=== PATIENT | male | born 1970 | race Caucasian/White ===

== ENCOUNTER 2016-10-09 13:01 | Emergency (ER) | payer OTHER ==
[~2016-10-09] VITALS: Ht 175.3 cm; Wt 101.2 kg
[2016-10-09 13:01] VITALS: BP_SYST 101
[2016-10-09] MEDS ORDERED: ONDANSETRON HCL 4 MG/2 ML VIAL IVP ONE (13:15)
[2016-10-09] MEDS ORDERED: HYDROmorphone 1 MG INJ. 1 MG/ML AMPUL IVP ONE (13:15)
[2016-10-09] MEDS ORDERED: KETOROLAC TROMETHAMINE 30 MG VIAL IVP ONE (13:45)
[2016-10-09 14:10] VITALS: BP_SYST 110
== END 2016-10-09 14:10 | disposition home or self-care (01) ==
LOC: SED 13:01
DX: S33.5XXA Sprain of ligaments of lumbar spine, initial encounter (principal); X58.XXXA Exposure to other specified factors, initial encounter; Y93.89 Activity, other specified; Y92.89 Other specified places as the place of occurrence of the external cause; Y99.8 Other external cause status
CPT/HCPCS: 72100; 96374; 96375; 99284; J1170; J1885; J2405

== ENCOUNTER 2019-03-09 06:58 | Inpatient (IN) | payer OTHER ==
[~2019-03-09] VITALS: Ht 175.3 cm; Wt 104.3 kg
[2019-03-09 07:09] VITALS: BP_SYST 150
--- NOTE | 2019-03-09 07:09 | NUR ---
Patient to ER bed 5 to gown for evaluation. Side rails up. Report given to MARV Daigle.
--- NOTE | 2019-03-09 07:25 | NUR ---
PATIENT PRESENTS TO THE ER WITH HX OF SEVERE EPIGASTRIC PAIN FOR 12 HOURS WITH NAUSEA AND VOMITING; NO TRAUMA, NO OTHER REMARKABLE S/S
--- NOTE | 2019-03-09 07:26 | NUR ---
PATIENT TO ER #5 AT 0778
--- NOTE | 2019-03-09 07:27 | NUR ---
ERMD EVALUATION AT 0720
[2019-03-09] MEDS ORDERED: NACL 0.9% 1,000 ML IV ONE (07:28)
[2019-03-09] MEDS ORDERED: ONDANSETRON HCL 4 MG/2 ML VIAL IVP ONE (07:30)
[2019-03-09 08:00] LABS: BASOPHILS % (AUTO) 0.1 % (0.0-2.0); EOSINOPHILS % (AUTO) 0.1 % (0.0-4.0); HEMATOCRIT 47.8 % (36-54); HEMOGLOBIN 16.1 g/dL (14.0-18.0); LYMPHOCYTES # (AUTO) 0.9 K/uL (1.0-5.5); LYMPHOCYTES % (AUTO) 6.6 % (20.5-51.5); MEAN CORPUSCULAR HEMOGLOBIN 30 pg (27-31); MEAN CORPUSCULAR HGB CONC 34 % (32-36); MEAN CORPUSCULAR VOLUME 90 fL (79.0-98.0); MONOCYTES # (AUTO) 1.2 K/uL (0.0-1.0); MONOCYTES % (AUTO) 8.2 % (1.7-9.3); NEUTROPHILS # (AUTO) 12.2 K/uL (1.8-7.7); PLATELET COUNT (AUTO) 297 K/uL (130-430); RED BLOOD CELL COUNT(AUTO) 5.32 MIL/uL (4.2-6.2); RED CELL DISTRIBUTION WIDTH 13.5 % (9.0-15.0); WHITE BLOOD COUNT (AUTO) 14.3 K/uL (4.8-10.8)
--- NOTE | 2019-03-09 08:00 | NUR ---
PATIENT IS ON BEAD INSPECTOR AND SAO2
--- NOTE | 2019-03-09 08:04 | NUR ---
IV PLACED #22 LEFT HAND WITHOUT INCIDENT
[2019-03-09 08:12] LABS: CALCIUM 9.3 mg/dL (8.4-11.0); CREATININE 0.97 mg/dL (0.55-1.30); POTASSIUM 4.1 mmol/L (3.5-5.1)
[2019-03-09] MEDS ORDERED: MORPHINE 4 MG/ML INJ. SYRINGE IVP ONE (08:15)
[2019-03-09 08:17] LABS: TOTAL BILIRUBIN 4.4 mg/dL (0.0-1.0)
[2019-03-09 08:22] LABS: BILIRUBIN,URINE 2+ (NEGATIVE); CLARITY/URINE CLEAR (CLEAR); COLOR,URINE YELLOW (YELLOW); GLUCOSE,URINE NEGATIVE (NEGATIVE); KETONES,URINE NEGATIVE (NEGATIVE); LEUKOCYTE ESTERASE ,URINE NEGATIVE (NEGATIVE); NITRITE, URINE NEGATIVE (NEGATIVE); PH,URINE 8.5 (5.0-8.0); PROTEIN URINE NEGATIVE (NEGATIVE)
--- NOTE | 2019-03-09 08:27 | NUR ---
REASSESSMENT; PATIENT STATES MARKED IMPROVEMENT IN SYMPTOMS, NAUSEA RESOLVED; DISPOSITION PENDING
[2019-03-09 08:35] LABS: BLOOD, URINE TRACE (NEGATIVE)
[2019-03-09 09:04] LABS: BACTERIA,URINE FEW /HPF (None Seen); WBC,URINE 0-3 /HPF (0-3)
--- NOTE | 2019-03-09 09:17 | NUR ---
REASSESSMENT; PATIENT STATES SYMPTOMS RESOLVED; DISPOSITION PENDING
--- NOTE | 2019-03-09 10:11 | NUR ---
REASSESSMENT; PATIENT REMAINS UNCHANGED AND ASYMPTOMATIC; SEDATE; DISPOSITION PENDING
--- NOTE | 2019-03-09 11:40 | NUR ---
REASSESSMENT BY ERMD; PREPARATIONS TO ADMIT; PATIENT REMAINS ASYMPTOMATIC AND WILL BE ADMITTED TO [facility] PER DR ALLEN FOR ACUTE CHOLECYSTITIS; REPORT CALLED TO NURSE AND PATIENT TRANSPORTED BCLS; IMPROVED
[2019-03-09] MEDS ORDERED: D5NS 1,000 ML IV ONE (11:45)
--- NOTE | 2019-03-09 11:51 | NUR ---
ADMISSION NOTE Received patient from ER via kumar, received report from MOMO FAIR. Patient admitted with diagnosis of ACUTE CHOLECYSTITIS. Patient oriented to hospital routine, call light, toileting and safety-patient verbalized understanding.
--- NOTE | 2019-03-09 11:52 | NUR ---
CONSULTATION PAGED REASON FOR CONSULTATION:ACUTE JOSÉ MIGUEL WAS CONSULT CALLED?Y PERSON WHO WAS NOTIFIED:DARBY CONSULTING PHYSICIAN:RUFUS HARDY FLATBED OWNER OPERATOR SPECIALTY:CARY FLATBED OWNER OPERATOR PHONE NUMBER:[phone] REQUESTING PHYSICIAN:THADDEUS MACE
[2019-03-09 12:06] VITALS: BP_SYST 120
--- NOTE | 2019-03-09 13:00 | NUR ---
MRI: To MRI on a wheelchair for MRCP.
[2019-03-09] MEDS ORDERED: METOCLOPRAMIDE HCL 10 MG/2 ML VIAL IVP PRN (15:15)
[2019-03-09] MEDS ORDERED: LEVOFLOXACIN 500 MG/D5W 100 ML IV SCH (15:15)
[2019-03-09] MEDS ORDERED: MORPHINE 4 MG/ML INJ. SYRINGE IVP PRN (15:15)
[2019-03-09] MEDS ORDERED: metroNIDAZOLE 500 mg/NS 100 ML IV SCH (15:15)
[2019-03-09 15:28] VITALS: BP_SYST 99
[2019-03-09] MEDS: ACETAMINOPHEN 325 MG TABLET PO PRN (15:28)
--- NOTE | 2019-03-09 16:00 | NUR ---
Sepsis Protocol: Patient's temperature at 1528 was 101.6, HR =107, MD sinha notified, sepsis protocol initiated .
[2019-03-09] MEDS: LEVOFLOXACIN 500 MG/D5W 100 ML IV SCH (16:01)
[2019-03-09] MEDS: metroNIDAZOLE 500 mg/NS 100 ML IV SCH (17:13)
--- NOTE | 2019-03-09 18:17 | NUR ---
End of shift: Needs attended. Made patient aware of plan of care.
[2019-03-09 19:13] LABS: BILIRUBIN,DIRECT 2.3 mg/dL (0.0-0.3)
--- NOTE | 2019-03-09 19:35 | NUR ---
OPENING NOTES Pt and endorsement received from day shift nurse. Pt is AAOx4, sitting on a chair. Family at bedside. Pt on IVF with D5NS at 100ml/hr and infusing well on left hand G22. No complains of pain at this time. No signs of acute distress or SOB noted. Encouraged to use call light when needed. Will continue to monitor.
[2019-03-09 20:13] VITALS: BP_SYST 117
[2019-03-09] MEDS: ONDANSETRON HCL 4 MG/2 ML VIAL IVP PRN (20:17)
--- NOTE | 2019-03-09 20:25 | NUR ---
PT SPOKE TO DR. MOORE Per pt, Dr. Moore said to him that he will not undergo surgery and can have full liquid. Will wait for MD to put new orders.
--- NOTE | 2019-03-09 23:28 | NUR ---
ROUNDS Pt is resting in bed with both eyes closed, with visible chest rise and fall with non-labored breathing noted. No complains of pain and no signs of acute distress noted. Safety precautions in place and call light with pt. Will continue to monitor.
[2019-03-10 00:01] VITALS: BP_SYST 107
[2019-03-10] MEDS: metroNIDAZOLE 500 mg/NS 100 ML IV SCH ×3 (00:01→16:37)
--- NOTE | 2019-03-10 03:17 | NUR ---
ROUNDS Pt is resting in bed with both eyes closed, with visible chest rise and fall with non-labored breathing noted. Pt is easily arousable. No signs of acute distress noted. No needs at this time. Safety precautions in place and call light with pt. Will continue to monitor.
[2019-03-10] MEDS: ACETAMINOPHEN 325 MG TABLET PO PRN (05:02)
--- NOTE | 2019-03-10 06:56 | NUR ---
CLOSING NOTES Pt is resting in bed with both eyes closed, with visible chest rise and fall with non-labored breathing noted. No complains of pain at this time. No signs of acute distress or SOB noted. All needs attended throughout the shift. Safety precautions maintained with 2 side rails up, wheels locked, and bed in lowest level. Call light with pt. Will endorse to day shift nurse.
[2019-03-10 07:06] LABS: BASOPHILS % (AUTO) 0.2 % (0.0-2.0); EOSINOPHILS % (AUTO) 0.4 % (0.0-4.0); HEMATOCRIT 43.6 % (36-54); HEMOGLOBIN 14.7 g/dL (14.0-18.0); LYMPHOCYTES # (AUTO) 1.2 K/uL (1.0-5.5); LYMPHOCYTES % (AUTO) 10.6 % (20.5-51.5); MEAN CORPUSCULAR HEMOGLOBIN 30 pg (27-31); MEAN CORPUSCULAR HGB CONC 34 % (32-36); MEAN CORPUSCULAR VOLUME 90 fL (79.0-98.0); MONOCYTES # (AUTO) 1.5 K/uL (0.0-1.0); MONOCYTES % (AUTO) 13.7 % (1.7-9.3); NEUTROPHILS # (AUTO) 8.3 K/uL (1.8-7.7); NEUTROPHILS % (AUTO) 75.1 % (40.0-70.0); PLATELET COUNT (AUTO) 245 K/uL (130-430); RED BLOOD CELL COUNT(AUTO) 4.85 MIL/uL (4.2-6.2); RED CELL DISTRIBUTION WIDTH 13.7 % (9.0-15.0); WHITE BLOOD COUNT (AUTO) 11.1 K/uL (4.8-10.8)
[2019-03-10 07:49] LABS: ALBUMIN 3.2 g/dL (3.4-4.8); CALCIUM 8.6 mg/dL (8.4-11.0); CREATININE 0.87 mg/dL (0.55-1.30); POTASSIUM 3.6 mmol/L (3.5-5.1)
[2019-03-10 07:55] LABS: TOTAL BILIRUBIN 7.2 mg/dL (0.0-1.0)
[2019-03-10 08:00] VITALS: BP_SYST 118
--- NOTE | 2019-03-10 08:00 | NUR ---
Note Pt sitting up in bed eating his breakfast. No SOB/resp distress or pain/discomfort noted at this time. IV in left hand intact and patent at this time. No needs noted at this time. Call light within reach.
--- NOTE | 2019-03-10 08:45 | NUR ---
Note Dr Zoila Lowery on the floor and assessed pt at bedside at this time. Answered questions/concerns. Pt's Bilirubin labs have come up since yesterday, Dr Lowery requested that Tylenol PO be dc'd at this time. Pt was made aware.
[2019-03-10 09:12] LABS: BILIRUBIN,DIRECT 5.1 mg/dL (0.0-0.3)
[2019-03-10] MEDS ORDERED: PANTOPRAZOLE SODIUM 40 MG/VIAL (PROTONIX) IVP ONE (09:30)
--- NOTE | 2019-03-10 10:44 | NUR ---
CONSULTATION PAGED/CALLED Reason for Consultation: elevated LFT Person Who was Notified: Dr. VELASCO Consulting Physician: Dr. Velasco Medical Oncology Physician Specialty: Gastroenterologiost Ordering Physician:
--- NOTE | 2019-03-10 11:00 | NUR ---
Note Pt ambulating in hallway with IV pole and then IV was wrapped in plastic and pt went to shower at this time. No needs noted at this time. Call light within reach.
[2019-03-10 11:13] VITALS: BP_SYST 106
[2019-03-10] MEDS ORDERED: DIATR MEGLU/DIATRIZ SOD 30 ML SOLUTION PO ONE (12:33)
[2019-03-10] MEDS: ONDANSETRON HCL 4 MG/2 ML VIAL IVP PRN ×2 (13:00→20:49)
--- NOTE | 2019-03-10 13:00 | NUR ---
IV RE-INSERTION: Complaining of pain to IV site. Restarted on right fore arm. Successful after 2 attempts g22 Resumed current IVF of and regulated @ per hour. Will observe for any signs of infiltration.
--- NOTE | 2019-03-10 13:00 | NUR ---
Note Pt's left hand IV fell out. New IV 22g' was inserted in right forearm by zinc furnace charger Sylvia at this time.
--- NOTE | 2019-03-10 13:07 | NUR ---
MD PALOMA RUBIO CALLED AT SPOKE WITH DR.REDDY LIZ MALLU CHEMIST INSTRUMENTATION.
--- NOTE | 2019-03-10 13:10 | NUR ---
Note Pt drank the oral contrast and experienced severe abdominal pain/discomfort - could not drink anymore. Dr Velasco was called and notified. stated have CT of abdomen with or without contrast. Radiology was notified, tech stated she would try giving IV contrast or will do CT abdomen without contrast. Dr Jaqueline Corbin was called for headache medication, per pt's request. Waiting for call back. Call light within reach.
--- NOTE | 2019-03-10 14:10 | NUR ---
Note Pt off the floor via wheelchair to Radiology dept for CT of abdomen/Pelvis.
[2019-03-10] MEDS ORDERED: IOHEXOL 100 ML IV ONE (14:12)
--- NOTE | 2019-03-10 14:25 | NUR ---
Note Dr Corbin called again for headache medications, waiting for call back.
--- NOTE | 2019-03-10 14:25 | NUR ---
Note Pt back form CT dept. Pt in bed at this time.
[2019-03-10 15:08] VITALS: BP_SYST 133
[2019-03-10] MEDS ORDERED: IBUPROFEN 400 MG TABLET PO PRN (15:15)
[2019-03-10] MEDS: LEVOFLOXACIN 500 MG/D5W 100 ML IV SCH (15:30)
--- NOTE | 2019-03-10 15:55 | NUR ---
Note Pt resting in bed at this time. States headache pain has decreased significantly since receiving Morphine IVP. Pain now at 1/10 on pain scale of 0/10. IVPB infusing through right forearm IV site. No needs noted at this time. Call light within reach. Pt has been ambulating in room to restroom all shift with steady gait.
--- NOTE | 2019-03-10 18:10 | NUR ---
Note Pt's appetite poor for dinner. No SOB/resp distress or severe abdominal pain/discomfort noted at this time. Pt was checked on q1' and PRN all shift for needs and care. IV in right hand intact and patent at this time. No needs noted. Call light within reach. Pt has been ambulating in room and now in hallway with mother and sister. No weakness/dizziness/abdominal pain/discomfort was noted.
--- NOTE | 2019-03-10 19:25 | NUR ---
Opening Note Received report from dayshift RN, patient is sitting up in bed, awake, A/Ox4, no signs of acute distress, even and unlabored breathing on room air, IV to right hand intact and saline locked, safety and fall precautions in place, patient refused bed alarm despite education, bed locked and in lowest position, two side rails up, call light with patient, will continue to monitor.
--- NOTE | 2019-03-10 20:49 | NUR ---
PRN Medications Patient complains of headache, nausea, and having the urge to vomit. PRN Zofran and Motrin indicated per MD order, educated patient on medication uses and potential side effects, patient able to verbalize understanding, administered medications per MD order, patient tolerated well, safety and fall precautions in place, call light with patient, will continue to monitor.
--- NOTE | 2019-03-10 23:10 | NUR ---
RN Rounds Patient is resting in bed, awake, no signs of acute distress, tolerating room air, IV to right hand intact and saline locked, no complaints of pain at this time, safety and fall precautions in place, call light with patient, will continue to monitor.
[2019-03-11] VITALS: BP_SYST 117
[2019-03-11] MEDS: metroNIDAZOLE 500 mg/NS 100 ML IV SCH ×3 (00:55→16:18)
--- NOTE | 2019-03-11 01:45 | NUR ---
Nausea Patient complains of nausea and having the urge to vomit. PRN Reglan 10mg indicated per MD order for nausea/vomiting. Educated patient on medication uses and potential side effects, patient able to verbalize understanding, administered medications per MD order, patient tolerated well, safety and fall precautions in place, call light with patient, will continue to monitor.
[2019-03-11] MEDS: MORPHINE 2 MG/ML INJ. SYRINGE IVP PRN (03:29)
--- NOTE | 2019-03-11 03:29 | NUR ---
Pain Patient complains of pain 6/10 to his abdomen. PRN morphine 2mg IVP indicated per MD order for moderate pain. Educated patient on medication uses and potential side effects, patient able to verbalize understanding, IV site is patent/benign, administered medications per MD order, patient tolerated well. Safety and fall precautions in place, call light with patient, will continue to monitor.
--- NOTE | 2019-03-11 05:32 | NUR ---
RN Rounds Patient is resting in bed, eyes closed, no signs of acute distress, tolerating room air, IV to right hand intact and saline locked, no complaints of pain at this time, safety and fall precautions in place, call light with patient, will continue to monitor.
--- NOTE | 2019-03-11 06:31 | NUR ---
Closing Note Patient is resting in bed, awake, no signs of acute distress, even and unlabored breathing on room air, IV to right hand intact and saline locked, safety and fall precautions in place, patient refused bed alarm despite education, bed locked and in lowest position, two side rails up, call light with patient, will endorse care to dayshift RN.
--- NOTE | 2019-03-11 07:40 | NUR ---
Opening note patient resting in bed, a/ox4, states mild abdominal discomfort and itching of the feet, patient informed MD of itching, will check for any orders, assessment complete, IV line is patent, no s/s of infiltration, educated the patient extrusion bender light system and plan of care, he verbalized understanding, bed in lowest position, two side rails up, call light within reach, fall and aspiration precautions in place.
[2019-03-11] MEDS ORDERED: MAG-AL HYDROX/SIMETH 30 ML UDC PO PRN (07:45)
--- NOTE | 2019-03-11 08:30 | NUR ---
Dr. Velasco rounds assessed the patient at bedside, answered patient questions, will inform MD of CT scan results when available.
[2019-03-11] MEDS: PANTOPRAZOLE SODIUM 40 MG/VIAL (PROTONIX) IVP SCH (08:33)
--- NOTE | 2019-03-11 08:40 | NUR ---
Medication patient resting in bed, educated him on all scheduled medications uses and potential side effects, he verbalized understanding and tolerated well, IV line is patent and infusing well, no other needs at this time, bed in lowest position, two side rails up, call light within reach, fall and aspiration precautions in place, continuing to monitor.
[2019-03-11 08:42] VITALS: BP_SYST 120
[2019-03-11 08:47] LABS: BASOPHILS % (AUTO) 0.1 % (0.0-2.0); EOSINOPHILS % (AUTO) 0.3 % (0.0-4.0); HEMATOCRIT 47.1 % (36-54); HEMOGLOBIN 15.6 g/dL (14.0-18.0); LYMPHOCYTES # (AUTO) 1.1 K/uL (1.0-5.5); MEAN CORPUSCULAR HEMOGLOBIN 30 pg (27-31); MEAN CORPUSCULAR HGB CONC 33 % (32-36); MEAN CORPUSCULAR VOLUME 91 fL (79.0-98.0); MONOCYTES # (AUTO) 1.6 K/uL (0.0-1.0); MONOCYTES % (AUTO) 11.3 % (1.7-9.3); NEUTROPHILS # (AUTO) 11.2 K/uL (1.8-7.7); NEUTROPHILS % (AUTO) 80.3 % (40.0-70.0); PLATELET COUNT (AUTO) 279 K/uL (130-430); RED BLOOD CELL COUNT(AUTO) 5.19 MIL/uL (4.2-6.2); RED CELL DISTRIBUTION WIDTH 14.1 % (9.0-15.0)
[2019-03-11] MEDS ORDERED: DIPHENHYDRAMINE HCL/ZINC ACET 28.3 GM CREAM.GM. TP PRN (09:00)
[2019-03-11 09:02] LABS: PROTHROMBIN TIME 10.3 SECS (9.5-12.5)
[2019-03-11 09:06] LABS: HEPATITIS A AB, IgM Negative (Negative); HEPATITIS B CORE AB, IgM Negative (Negative); HEPATITIS B SURFACE AG Negative (Negative)
[2019-03-11 09:07] LABS: ALBUMIN 3.4 g/dL (3.4-4.8); CREATININE 0.96 mg/dL (0.55-1.30); POTASSIUM 3.8 mmol/L (3.5-5.1)
[2019-03-11 09:10] LABS: TOTAL BILIRUBIN 6.9 mg/dL (0.0-1.0)
--- NOTE | 2019-03-11 09:36 | NUR ---
CT scan results Dr. Velasco at nursing station, informed of CT scan results, MD stated to inform him if patient continues to have abdominal pain, will follow up.
--- NOTE | 2019-03-11 10:35 | NUR ---
RN rounds patient resting in bed, attempting to eat breakfast, patient is concerned about having nausea, denies nausea or pain at this time, offered the patient Benadryl cream at this time, he states his itching is better and he does not need the cream at this time, informed him to ask when he needs it as the medication is as needed, he verbalized understanding at this time, continuing to monitor the patient ,bed in lowest position, two side rails up, call light within reach, fall and aspiration precautions in place.
[2019-03-11 12:20] VITALS: BP_SYST 118
--- NOTE | 2019-03-11 12:20 | NUR ---
RN rounds patient resting in bed, eating lunch, aspiration precautions in place, patient denies pain at this time, no other needs at this time, continuing to monitor, bed in lowest position, two side rails up, call light within reach, fall and aspiration precautions in place.
[2019-03-11] MEDS: LEVOFLOXACIN 500 MG/D5W 100 ML IV SCH (15:14)
--- NOTE | 2019-03-11 15:20 | NUR ---
RN rounds/Medication patient resting in bed, awake, denies pain, educated him on IV antibiotic uses and potential side effects, he verbalized understanding, IV line is patent and infusing well, provided patient with ice water per request, no other needs at this time, bed in lowest position, two side rails up, call light within reach, fall and aspiration precautions in place.
[2019-03-11 16:23] VITALS: BP_SYST 113
--- NOTE | 2019-03-11 16:23 | NUR ---
RN rounds patient sitting in chair at bedside, denies pain, educated on IV antibiotic uses and potential side effects, he verbalized understanding, IV line is patent at this time, continuing to monitor the patient, bed in lowest position, two side rails up, call light is within reach, fall and aspiration precautions in place.
--- NOTE | 2019-03-11 17:09 | NUR ---
IV Re-insertion Complaining of pain to IV site. Restarted on LEFT FOREARM 22G. Successful after 1 attempt. Resumed current IV ANTIBIOTIC INFUSION. Will observe for any signs of infiltration.
--- NOTE | 2019-03-11 18:41 | NUR ---
Closing note patient resting in bed, awake, denies pain, denies shortness of breath, all needs met, will endorse report to NOC shift nurse, bed in lowest position, two side rails up, call light within reach, fall and aspiration precautions in place.
[2019-03-11 20:00] VITALS: BP_SYST 110
--- NOTE | 2019-03-11 21:00 | NUR ---
PT RECIEVED AWAKE ALERT AND ORIENTED X3 PT HAVE NO C/O ANY PAIN . PT ABLE TO AMBULATE TO THE BATHROOM BY HIMSELF . IV SITE LOCATED TO THE LEFT UPPER EXTREMITY . PT GIVEN BENEDRYL TO BOTH FOOT , PT WILL CONTINUE WITH ANTIBIOTICS .
--- NOTE | 2019-03-12 | NUR ---
PT GIVEN FLAGYL IV . VITAL SIGN STABLE . PT SLEEPING .
[2019-03-12] MEDS: metroNIDAZOLE 500 mg/NS 100 ML IV SCH ×3 (00:41→17:58)
--- NOTE | 2019-03-12 05:00 | NUR ---
PT AWAKE . NO C/O OF PAIN OR ANY SOB ,PT RESTED WELL DURING THE NIGHT .WILL CONTINUE TO MONITOR PATIENT .
[2019-03-12 07:21] LABS: BASOPHILS % (AUTO) 0.3 % (0.0-2.0); EOSINOPHILS # (AUTO) 0.1 K/uL (0.0-0.4); EOSINOPHILS % (AUTO) 1.7 % (0.0-4.0); HEMATOCRIT 45.7 % (36-54); HEMOGLOBIN 15.5 g/dL (14.0-18.0); LYMPHOCYTES # (AUTO) 1.9 K/uL (1.0-5.5); LYMPHOCYTES % (AUTO) 23.1 % (20.5-51.5); MEAN CORPUSCULAR HEMOGLOBIN 31 pg (27-31); MEAN CORPUSCULAR HGB CONC 34 % (32-36); MEAN CORPUSCULAR VOLUME 91 fL (79.0-98.0); MONOCYTES # (AUTO) 1.3 K/uL (0.0-1.0); MONOCYTES % (AUTO) 15.5 % (1.7-9.3); NEUTROPHILS % (AUTO) 59.4 % (40.0-70.0); PLATELET COUNT (AUTO) 290 K/uL (130-430); RED BLOOD CELL COUNT(AUTO) 5.02 MIL/uL (4.2-6.2); RED CELL DISTRIBUTION WIDTH 13.8 % (9.0-15.0); WHITE BLOOD COUNT (AUTO) 8.4 K/uL (4.8-10.8)
[2019-03-12 07:36] LABS: ALBUMIN 3.1 g/dL (3.4-4.8); CALCIUM 8.8 mg/dL (8.4-11.0); CREATININE 0.99 mg/dL (0.55-1.30); POTASSIUM 3.4 mmol/L (3.5-5.1)
[2019-03-12 08:00] VITALS: BP_SYST 115
--- NOTE | 2019-03-12 08:00 | NUR ---
ADMISSION: RECEIVED PT A/A/OX4, IN STABLE CONDITION, DX:RISK FOR FLUID VOLUME DEFICIT, R/T ACUTE CHOLECYSTITIS, VSS, AFEBRILE, NO S/S OF DISTRESS, BREATH SOUNDS ARE CLEAR, BREATHING UNLABORED, NO C/O PAIN OR DISCOMFORT, IV SITE INTACT, PATENT, NO REDNESS OR SWELLING, ORIENTED TO UNIT, CALL LIGHT PLACED WITHIN REACH, WILL CONT' TO MONITOR AND ASSESS.
[2019-03-12 08:02] LABS: TOTAL BILIRUBIN 7.3 mg/dL (0.0-1.0)
--- NOTE | 2019-03-12 09:00 | NUR ---
FREELANCE MAKEUP ARTIST: MORNING MEDS GIVEN, PER ORDERED BY Fletcher, TOLERATED WELL, CALL LIGHT WITHIN REACH, WILL CONT' TO MONITOR AND ASSESS.
[2019-03-12] MEDS: PANTOPRAZOLE SODIUM 40 MG/VIAL (PROTONIX) IVP SCH (09:45)
--- NOTE | 2019-03-12 10:00 | NUR ---
VISIT: AT BEDSIDE FOR ASSESSMENT OF PT, DISCUSSED POC, PT VERBALIZES UNDERSTANDING, NEW ORDERS GIVEN, WILL CONT' WITH POC.
[2019-03-12 11:06] VITALS: BP_SYST 116
[2019-03-12 12:00] VITALS: BP_SYST 115
--- NOTE | 2019-03-12 12:00 | NUR ---
NURSES NOTES: PT REMAINS STABLE, KEPT NPO FOR SCHEDULED CT SCAN WITH BIOPSY, VERBALIZES UNDERSTANDING, NEEDS MET, WILL CONT' WITH POC.
--- NOTE | 2019-03-12 15:00 | NUR ---
NURSES NOTES: PT UP OOB, INTO CHAIR WITH NO C/O PAIN OR DISCOMFORT, ABLE TO COMMUNICATE NEEDS, CALL LIGHT PLACED WITHIN REACH, WILL CONT' TO MONITOR AND ASSESS.
[2019-03-12 16:00] VITALS: BP_SYST 107
--- NOTE | 2019-03-12 17:00 | NUR ---
VISIT: AT BEDSIDE FOR ASSESSMENT OF PT, DISCUSSED POC, PT VERBALIZES UNDERSTANDING, NEW ORDERS GIVEN, WILL CONT' WITH POC.
[2019-03-12] MEDS: LEVOFLOXACIN 500 MG/D5W 100 ML IV SCH (17:57)
--- NOTE | 2019-03-12 19:15 | NUR ---
OPENING NOTES Receive report from MARV Goldberg at bedside. Patient AOx4, watching TV. No signs of respiratory distress noted. Denies pain and discomfort. HOB raised. On room air, saturating at 98%, tolerating well. IV site, patency noted. Call light within reach, patient educated to use call light when assistance is needed, patient verbalized understanding. Bed locked and in lowest position. Bed alarm on. Safety precautions in place. Will continue to monitor patient.
[2019-03-12 20:18] VITALS: BP_SYST 105
--- NOTE | 2019-03-12 22:20 | NUR ---
RN ROUNDS Patient sitting in bed watching TV. No signs of respiratory distress noted. Denies pain and discomfort at this time. IV site, patency noted. Needs attended . Safety precautions in place. Will continue to monitor patient.
[2019-03-13] VITALS: BP_SYST 112
[2019-03-13] MEDS: metroNIDAZOLE 500 mg/NS 100 ML IV SCH ×2 (00:15→09:59)
--- NOTE | 2019-03-13 00:15 | NUR ---
MEDICATION Flagyl 500mg/100ml IVPB given at this time. Patient tolerated well. Patient educated on purpose, side effects and benefits of the medication. Patient verbalized understanding. No signs of respiratory distress noted. Denies pain and discomfort at this time. Safety precautions in place. Will continue to monitor patient.
--- NOTE | 2019-03-13 02:30 | NUR ---
RN ROUNDS Patient asleep at this time. No signs of respiratory distress and discomfort noted. Breathing even and unlabored. Call light within reach. Safety precautions in place.Will continue to monitor patient.
--- NOTE | 2019-03-13 06:30 | NUR ---
CLOSING NOTES Patient awake, watching TV. AOx4. No signs of respiratory distress noted. Denies pain and discomfort at this time. Kept NPO since midnight, for procedure this morning. IV site, patency noted. Call light within reach. Bed locked and in lowest position. Safety precautions in place. All needs met throughout the shift. Will continue to monitor until endorsed to oncoming shift nurse for continuity of care.
[2019-03-13 08:00] VITALS: BP_SYST 110
[2019-03-13] MEDS: PANTOPRAZOLE SODIUM 40 MG/VIAL (PROTONIX) IVP SCH (08:23)
[2019-03-13] MEDS ORDERED: LIDOCAINE 1%, 20 ML MDV 0 ML ONE (08:35)
[2019-03-13] MEDS: MORPHINE 2 MG/ML INJ. SYRINGE IVP PRN (09:51)
[2019-03-13] MEDS: ONDANSETRON HCL 4 MG/2 ML VIAL IVP PRN (09:57)
--- NOTE | 2019-03-13 11:17 | NUR ---
Patient came back from biopsy, he seems stable, vitals signs stable, no signs of internal bleeding, his dressing is dry and intact. Alexey FAIR
[2019-03-13 11:29] VITALS: BP_SYST 104
[2019-03-13 12:00] VITALS: BP_SYST 104
[2019-03-13 13:10] VITALS: BP_SYST 104
[2019-03-13 13:20] VITALS: BP_SYST 104
[2019-03-13 15:06] LABS: ANTI NUCLEAR AB WITH REFLEX Negative (Negative)
[2019-03-15 13:20] LABS: ANTI-SMOOTH MUSCLE AB 7 Units (0-19)
[2019-03-15 15:13] LABS: ATYPICAL pANCA <1:20 titer (Neg:<1:20); CYTOPLASMIC (C-ANCA) <1:20 titer (Neg:<1:20); CYTOPLASMIC (P-ANCA) <1:20 titer (Neg:<1:20)
== END 2019-03-13 13:50 | disposition home or self-care (01) | DRG 445 ==
LOC: SED 06:58 → SMU 11:32
PROVIDERS: ADMIT Internal Medicine Hospice and Palliative Medicine; ATTEND Internal Medicine Hospice and Palliative Medicine
PROC: 0FB13ZX Excision of Right Lobe Liver, Percutaneous Approach, Diagnostic (ICD-10-PCS; principal; 2019-03-13)
DX: K80.20 Calculus of gallbladder without cholecystitis without obstruction (principal); B17.9 Acute viral hepatitis, unspecified; E78.5 Hyperlipidemia, unspecified; Z60.2 Problems related to living alone
CPT/HCPCS: 36415; 47000; 74018; 74181; 76700-TC; 80053; 80074; 81000-TC; 82247-TC; 82248-TC; 82728; 83516; 83605; 83615-TC; 83690-TC; 85025; 85610-TC; 85730-TC; 86038; 86256; 87040-TC; 88307; 88313; 96361; 96374; 96375; 99285; C9113; J1956; J2001; J2270; J2405; J2765; J3490; J7030; J7042; Q9964; Q9967

== ENCOUNTER 2019-06-18 20:16 | Inpatient (IN) | payer OTHER, SELFPAY ==
[~2019-06-18] VITALS: Ht 175.3 cm; Wt 94.8 kg
[2019-06-18 20:17] VITALS: BP_SYST 124
--- NOTE | 2019-06-18 20:17 | NUR ---
Patient to ER bed 06 to gown for evaluation. Side rails up.
--- NOTE | 2019-06-18 20:20 | NUR ---
Patient is alert and oriented x4 with complaints of a fever, buring with urination, stomach pain, diarrhea, and a headache. Patient states on tuesday morning at 2am his symptoms started after drinking orange juice tuesday night. Patient states when he took his temperature his fever was 105 and 103 today. Patient states he took 800mg of motrin at 730pm tonight to help relieve his symptoms. Patient states the motrin was effective for his stomach pain so he rates his pain a 0 out of 10. Patient has a history of menieres dieases and gallbladder removal. Patient denies cough, shortness of breath, nausea, and vomiting.
[2019-06-18] MEDS ORDERED: cefTRIAXone 0.75 GM in LIDOCAINE 1%, 20 ML MDV 2.1 ML IM ONE (20:30)
[2019-06-18] MEDS ORDERED: ACETAMINOPHEN 500 MG TABLET PO ONE (20:30)
[2019-06-18] MEDS ORDERED: AZITHROMYCIN 250 MG TABLET PO ONE (20:30)
[2019-06-18 20:37] LABS: BILIRUBIN,URINE NEGATIVE (NEGATIVE); BLOOD, URINE 2+ (NEGATIVE); CLARITY/URINE CLEAR (CLEAR); COLOR,URINE YELLOW (YELLOW); GLUCOSE,URINE NEGATIVE (NEGATIVE); KETONES,URINE NEGATIVE (NEGATIVE); LEUKOCYTE ESTERASE ,URINE NEGATIVE (NEGATIVE); NITRITE, URINE NEGATIVE (NEGATIVE); PROTEIN URINE 1+ (NEGATIVE)
[2019-06-18 20:51] LABS: BASOPHILS % (AUTO) 0.1 % (0.0-2.0); EOSINOPHILS % (AUTO) 0.1 % (0.0-4.0); HEMATOCRIT 39.3 % (36-54); HEMOGLOBIN 13.2 g/dL (14.0-18.0); LYMPHOCYTES # (AUTO) 0.9 K/uL (1.0-5.5); LYMPHOCYTES % (AUTO) 6.2 % (20.5-51.5); MEAN CORPUSCULAR HEMOGLOBIN 29 pg (27-31); MEAN CORPUSCULAR HGB CONC 34 % (32-36); MEAN CORPUSCULAR VOLUME 86 fL (79.0-98.0); MONOCYTES # (AUTO) 1.1 K/uL (0.0-1.0); MONOCYTES % (AUTO) 7.6 % (1.7-9.3); NEUTROPHILS # (AUTO) 12.6 K/uL (1.8-7.7); PLATELET COUNT (AUTO) 232 K/uL (130-430); RED BLOOD CELL COUNT(AUTO) 4.59 MIL/uL (4.2-6.2); RED CELL DISTRIBUTION WIDTH 13.3 % (9.0-15.0); WHITE BLOOD COUNT (AUTO) 14.6 K/uL (4.8-10.8)
[2019-06-18 20:58] LABS: BACTERIA,URINE FEW /HPF (None Seen); WBC,URINE 0-3 /HPF (0-3)
[2019-06-18 20:59] LABS: MUCUS,URINE 1+ /LPF (None Seen)
[2019-06-18 20:59] LABS: CALCIUM 7.9 mg/dL (8.4-11.0); CREATININE 0.97 mg/dL (0.55-1.30); POTASSIUM 3.2 mmol/L (3.5-5.1)
[2019-06-18 21:05] LABS: ALBUMIN 2.8 g/dL (3.4-4.8); TOTAL BILIRUBIN 1.7 mg/dL (0.0-1.0)
--- NOTE | 2019-06-18 21:06 | NUR ---
ER Dr. Santamaria at bedside examining patient.
--- NOTE | 2019-06-18 21:51 | NUR ---
Patient tolerated medications well. Vital signs stable.
[2019-06-18] MEDS ORDERED: NACL 0.9% 1,000 ML IV ONE (22:00)
[2019-06-18] MEDS ORDERED: AZITHROMYCIN 250 MG TABLET ONE (22:05)
--- NOTE | 2019-06-18 22:10 | NUR ---
# 20 gauge angiocath placed to left forearm. Use of asceptic technique. Opsite placed over site. Blood return noted. Blood for lab drawn from site. Flushed with 10 cc of normal saline. No evidence of infiltration noted. Patient tolerated well.
[2019-06-18] MEDS ORDERED: FAMOTIDINE 20 MG TABLET PO ONE (22:15)
[2019-06-18] MEDS ORDERED: cefTRIAXone 250 MG in LIDOCAINE 1%, 20 ML MDV 0.9 ML IM ONE (23:30)
--- NOTE | 2019-06-18 23:45 | NUR ---
FLU AND COVID TEST DONE AND SENT TO LAB.
--- NOTE | 2019-06-18 23:52 | NUR ---
Patients blood pressure was 87/49 at 2342. MD notified. Order receieved for 1L NS bolus started. Will continue to monitor.
--- NOTE | 2019-06-18 23:55 | NUR ---
Medication reconciliation completed with information provided by patient. Any prior medication reconciliation on file was reviewed and corrected.
--- NOTE | 2019-06-18 23:55 | NUR ---
Patient's code status is FULL CODE paperwork completed and placed in chart.
[2019-06-18] MEDS ORDERED: OMEP10SU2 PO (23:57)
[2019-06-19] VITALS (7 sets, daily range): BP systolic 97–113
[2019-06-19] MEDS ORDERED: NACL 0.9% 1,000 ML IV ONE
[2019-06-19] MEDS ORDERED: PIPERACILLIN/TAZO 3.375 GM in NS 50 ML IV ONE ×2
[2019-06-19] MEDS ORDERED: NACL 0.9% 1,000 ML IV STA (00:27)
--- NOTE | 2019-06-19 00:30 | NUR ---
Patient will be admitted to care of ALEJANDRO. Admitted to TELE unit. Will go to room 117. Belongings list completed. Complete and up to date summary report printed. SBAR report to be given at bedside with opportunity for questions.
[2019-06-19] MEDS ORDERED: PIPERACILLIN/TAZOBACTAM 3.375 GM/VIAL (ZOSYN) IV ONE ×2 (00:48→06:08)
--- NOTE | 2019-06-19 01:30 | NUR ---
FLUID RESUSITATION COMPLETED. 3 LITERS OF NS GIVEN. ZOSYN 3.375G IV PIGGYBACK GIVEN. BLOOD CULTURES AND LACTIC X2 COMPLETED. TEMPERATURE IS 97.3. VITAL SIGNS STABLE
--- NOTE | 2019-06-19 02:19 | NUR ---
Transfer to TELE via ACLS protocol. Licensed nurse present. IV present no signs or symptoms of infiltration.
[2019-06-19] MEDS ORDERED: MORPHINE 2 MG/ML INJ. SYRINGE IVP PRN (02:30)
--- NOTE | 2019-06-19 02:33 | NUR ---
ADMISSION NOTE Received patient from ER via kumar, received report from MARV FERNANDEZ. Patient admitted with diagnosis of FEVER, SEPSIS. Patient oriented to hospital routine, call light, toileting and safety-patient verbalized understanding.
[2019-06-19] MEDS: NACL 0.9% 1,000 ML IV SCH ×4 (03:13→20:49)
--- NOTE | 2019-06-19 03:20 | NUR ---
ID consutlation paged Reason for consultation: Sepsis Was consult called: Yes Person who was notified: Ashlyn Consulting Physician: Dr Tobar Teletypesetter Specialty: Infectious Disease Teletypesetter Ordered By: Dr Petty
--- NOTE | 2019-06-19 04:40 | NUR ---
DR. GARCIA ROUNDS DR. GARCIA AT NURSES STATION.
[2019-06-19] MEDS ORDERED: PIPERACILLIN/TAZO 3.375/DEX-IS 50 ML IV SCH (06:00)
--- NOTE | 2019-06-19 06:56 | NUR ---
CLOSING NOTE PT RESTING IN BED, NO S/S OF ACUTE DISTRESS, BREATHING UNLABORED TO ROOM AIR, IVF INFUSING AT ORDERED RATE. SAFETY AND ISOLATION PRECAUTIONS ARE IN PLACE. CALL LIGHT IS WITH PT. WILL ENDORSE CARE TO DAY SHIFT RN.
[2019-06-19 07:01] LABS: BASOPHILS % (AUTO) 0.1 % (0.0-2.0); HEMATOCRIT 39.3 % (36-54); HEMOGLOBIN 13.1 g/dL (14.0-18.0); LYMPHOCYTES # (AUTO) 1.2 K/uL (1.0-5.5); LYMPHOCYTES % (AUTO) 11.4 % (20.5-51.5); MEAN CORPUSCULAR HEMOGLOBIN 29 pg (27-31); MEAN CORPUSCULAR HGB CONC 33 % (32-36); MONOCYTES % (AUTO) 9.2 % (1.7-9.3); NEUTROPHILS # (AUTO) 8.6 K/uL (1.8-7.7); NEUTROPHILS % (AUTO) 79.3 % (40.0-70.0); PLATELET COUNT (AUTO) 216 K/uL (130-430); RED BLOOD CELL COUNT(AUTO) 4.48 MIL/uL (4.2-6.2); RED CELL DISTRIBUTION WIDTH 13.8 % (9.0-15.0); WHITE BLOOD COUNT (AUTO) 10.8 K/uL (4.8-10.8)
[2019-06-19 07:28] LABS: ALBUMIN 2.4 g/dL (3.4-4.8); CALCIUM 7.6 mg/dL (8.4-11.0); CREATININE 0.83 mg/dL (0.55-1.30); POTASSIUM 3.5 mmol/L (3.5-5.1); TOTAL BILIRUBIN 1.4 mg/dL (0.0-1.0)
[2019-06-19 07:46] LABS: MEAN CORPUSCULAR VOLUME 88 fL (79.0-98.0)
--- NOTE | 2019-06-19 08:00 | NUR ---
Note Pt sitting up in bed eating his breakfast. Pt states he has severe headache at this time. Pt's IV in left forearm intact and patent infusing IVF's well. No SOB/resp distress or pain/discomfort noted at this time. Pt ambulatory at this time. No needs noted at this time. Call light within reach.
[2019-06-19] MEDS: AZITHROMYCIN 500 MG in NS 250 ML IV SCH (08:54)
[2019-06-19] MEDS: ACETAMINOPHEN 325 MG TABLET PO PRN ×2 (09:10→18:20)
--- NOTE | 2019-06-19 09:47 | NUR ---
Nutrition Update Castillo Scale 18 noted. Pt admitted for fever, sepsis. Diet: regular BMI: 30.9 kg/m2 RD to follow per nutrition care standards.
--- NOTE | 2019-06-19 12:00 | NUR ---
Note Dr Price on the floor at 1110am - assessment done, orders written and carried out. Pt stable at this time. Independently ambulates to restroom and back to bed with steady gait. No needs noted at this time. Call light within reach.
--- NOTE | 2019-06-19 16:00 | NUR ---
Note Pt resting in bed and denies any needs at this time. Pt watching television. Pain tolerable at this time. Call light within reach.
--- NOTE | 2019-06-19 18:50 | NUR ---
Note Pt sitting up in bed eating his dinner. No SOB/resp distress or severe pain/discomfort noted at this time. Pt was checked on q1' and PRN all shift for needs and care. Pt has tele unit attached and intact all shift. IV in left forearm intact and patent infusing IVF's well. Pt was maintained with safety and isolation precautions all shift. No needs noted at this time. Call light within reach. Pt ambulated to restroom all shift independently with steady gait and IV pole.
--- NOTE | 2019-06-19 19:32 | NUR ---
OPENING NOTE PT RESTING IN BED, NO S/S OF ACUTE DISTRESS, BREATHING UNLABORED TO ROOM AIR, IVF INFUSING AT ORDERED RATE, PT DENIES PAIN AT THIS TIME. SAFETY AND ISOLATION PRECAUTIONS ARE IN PLACE. CALL LIGHT IS WITH PT.
[2019-06-19] MEDS: cefTRIAXone 1 GM in D5W 50 ML IV SCH (20:49)
--- NOTE | 2019-06-19 21:00 | NUR ---
MEDICATION PASS/ROUNDS SCHEDULED ROCEPHIN ADMINISTERED ORDERED. MEDICATION EXPLAINED TO PT. NEW BAG OF NS HUNG AND REGULATED TO INFUSE AT ORDERED RATE. PT RESTING IN BED, DENIES PAIN AT THIS TIME, BREATHING IS EVEN AND UNLABORED TO ROOM AIR, O2 SATURATION IS 98% AT THIS TIME. VSS. PT REPORTED THAT HE STARTED TO FEEL CONGESTED TODAY IN HIS CHEST AND NOSE, PT STATED THAT SITTING UP HELPED WITH THE CONGESTION. PT BROUGHT FRESH ICE WATER PER REQUEST. PT DENIES FURTHER NEEDS AT THIS TIME. SAFETY AND ISOLATION PRECAUTIONS MAINTAINED. CALL LIGHT WITH PT. WILL MONITOR.
--- NOTE | 2019-06-19 23:15 | NUR ---
SLEEPING PT RESTING IN BED WITH EYES CLOSED. VISIBLE SYMMETRICAL RISE AND FALL OF CHEST TO ROOM AIR, PT OXYGEN SATURATION IS 98% ON THE LIBRARY SERVICES DEAN. NO S/S OF ACUTE DISTRESS, PT APPEARS COMFORTABLE. IVF INFUSING AT ORDERED RATE, NO S/S OF INFILTRATION AT IV SITE. SAFETY AND ISOLATION PRECAUTIONS MAINTAINED. WILL MONITOR.
[2019-06-20 01:19] VITALS: BP_SYST 106
--- NOTE | 2019-06-20 01:20 | NUR ---
RN ROUNDS: PT IN BED, AWAKE AND IN NO ACUTE DISTRESS. VITALS ARE STABLE. PT DENIES ANY PAIN AT THIS TIME. BREATHING IS UNLABORED TO ROOM AIR. PT GIVEN FRESH ICE WATER. SAFETY AND ISOLATION PRECAUTIONS ARE IN PLACE. WILL MONITOR.
--- NOTE | 2019-06-20 03:44 | NUR ---
RESTING PT RESTING IN BED WITH EYES CLOSED. VISIBLE SYMMETRICAL RISE AND FALL OF CHEST TO ROOM AIR, PT OXYGEN SATURATION IS 99% ON THE MONITOR. NO S/S OF ACUTE DISTRESS NOTED, PT APPEARS COMFORTABLE. IVF INFUSING AT ORDERED RATE, NO S/S OF INFILTRATION AT IV SITE. SAFETY AND ISOLATION PRECAUTIONS MAINTAINED. WILL MONITOR.
[2019-06-20] MEDS: NACL 0.9% 1,000 ML IV SCH ×3 (05:13→18:20)
--- NOTE | 2019-06-20 05:14 | NUR ---
SNACKS/IVF BAG CHANGE PT GIVEN SNACKS (TURKEY SANDWICH, JELLO, AND PUDDING) PER REQUEST. NEW BAG OF NS HUNG AND REGULATED TO INFUSE AT ORDERED RATE. PT DENIES PAIN AT THIS TIME. BREATHING IS UNLABORED TO ROOM AIR, NO SOB NOTED. PT DENIES FURTHER NEEDS AT THIS TIME. SAFETY AND ISOLATION PRECAUTIONS ARE IN PLACE. WILL MONITOR.
--- NOTE | 2019-06-20 06:24 | NUR ---
CLOSING NOTE PT RESTING IN BED, NO S/S OF ACUTE DISTRESS, BREATHING UNLABORED TO ROOM AIR, IVF INFUSING AT ORDERED RATE. SAFETY AND ISOLATION PRECAUTIONS ARE IN PLACE. CALL LIGHT IS WITH PT. WILL CONTINUE TO MONITOR UNTIL PT CARE IS ENDORSED TO DAY SHIFT RN.
[2019-06-20 07:07] LABS: BASOPHILS % (AUTO) 0.3 % (0.0-2.0); EOSINOPHILS % (AUTO) 0.3 % (0.0-4.0); HEMATOCRIT 37.3 % (36-54); HEMOGLOBIN 12.6 g/dL (14.0-18.0); LYMPHOCYTES # (AUTO) 1.7 K/uL (1.0-5.5); LYMPHOCYTES % (AUTO) 19.9 % (20.5-51.5); MEAN CORPUSCULAR HEMOGLOBIN 29 pg (27-31); MEAN CORPUSCULAR HGB CONC 34 % (32-36); MEAN CORPUSCULAR VOLUME 87 fL (79.0-98.0); MONOCYTES % (AUTO) 11.7 % (1.7-9.3); NEUTROPHILS # (AUTO) 5.7 K/uL (1.8-7.7); NEUTROPHILS % (AUTO) 67.8 % (40.0-70.0); PLATELET COUNT (AUTO) 240 K/uL (130-430); RED BLOOD CELL COUNT(AUTO) 4.31 MIL/uL (4.2-6.2); RED CELL DISTRIBUTION WIDTH 13.6 % (9.0-15.0); WHITE BLOOD COUNT (AUTO) 8.4 K/uL (4.8-10.8)
[2019-06-20 07:23] LABS: ALBUMIN 2.3 g/dL (3.4-4.8); CALCIUM 7.9 mg/dL (8.4-11.0); CREATININE 0.8 mg/dL (0.55-1.30); POTASSIUM 3.2 mmol/L (3.5-5.1); TOTAL BILIRUBIN 0.7 mg/dL (0.0-1.0)
[2019-06-20 08:00] VITALS: BP_SYST 113
--- NOTE | 2019-06-20 08:00 | NUR ---
Note Pt sitting up in bed eating his breakfast. No SOB/resp distress or pain/discomfort noted at this time. IV in left forearm intact and patent infusing IVF's at this time. Tele unit attached and intact at this time. No needs noted at this time. Call light within reach.
[2019-06-20] MEDS: AZITHROMYCIN 500 MG in NS 250 ML IV SCH (09:24)
--- NOTE | 2019-06-20 09:46 | NUR ---
paged Dr. Crooks. [phone]
--- NOTE | 2019-06-20 10:00 | NUR ---
Note Dr Russell on the floor and was notified that pt's K is 3.2 at this time.
--- NOTE | 2019-06-20 11:20 | NUR ---
Note Pt was resting in bed watching television. No needs noted at this time. Dr Crooks called and update on pt's status given. Dr Crooks will be in this afternoon to see pt. Call light within reach.
--- NOTE | 2019-06-20 11:25 | NUR ---
Note Dr Price to see and assess pt at this time.
[2019-06-20 12:00] VITALS: BP_SYST 116
--- NOTE | 2019-06-20 13:57 | NUR ---
Dietitian Recommendations * Recommend continuing regular diet LP, RD Please refer to Nutrition Assessment for details. Addendum: 06/20/19 at [address] Amended: Links added.
[2019-06-20 16:00] VITALS: BP_SYST 127
--- NOTE | 2019-06-20 17:15 | NUR ---
Note Dr Crooks on the floor assessing pt and answering questions/concerns at this time. Pt stable. Call light within reach.
--- NOTE | 2019-06-20 18:30 | NUR ---
Note Pt's sitting up in bed eating his dinner. Pt checked on q1' and PRN all shift for needs and care. No SOB/resp distress or pain/discomfort noted at this time. Pt's tele unit attached and intact at this time. IV in left forearm intact and patent infusing IVF's well. Pt was maintained with safety and isolation precautions all shift. No needs noted at this time. Call light within reach.
--- NOTE | 2019-06-20 19:40 | NUR ---
Opening Notes Patient is resting in bed at this time. Patient is asking for a sandwich, RN brought to bedside. No signs of distress noted, breathing is even and unlabored. Left forearm 20G is patent and infusing. kindergarten prep teacher is in place. Vital signs were taken at this time. No other needs noted. Bed is locked in the lowest position with call light within reach. Safety precautions are in place. Addendum: 06/21/19 at 0148 by Queenie Holliday RN Scheduled medication was given at this time via IVPB. Patient educated on action and side effects. Patient verbalized an understanding.
[2019-06-20 20:00] VITALS: BP_SYST 111
[2019-06-20] MEDS: cefTRIAXone 1 GM in D5W 50 ML IV SCH (20:00)
[2019-06-20] MEDS ORDERED: cefTRIAXone 1 GM VIAL ONE (21:34)
[2019-06-21] VITALS: BP_SYST 108
--- NOTE | 2019-06-21 | NUR ---
RN Rounds Patient is resting in bed with eyes closed at this time. Breathing is even and unlabored, no signs of distress noted. Vital signs were taken at this time and are stable. Patient does not have any needs at this time. Bed is locked in the lowest position with call light within reach. Side rails up X 2.
[2019-06-21 00:08] LABS: CHLAMYDIA TRACHOMATIS NAA Negative (Negative); NEISSERIA GONORRHOEAE NAA Negative (Negative)
[2019-06-21] MEDS: NACL 0.9% 1,000 ML IV SCH ×2 (01:47→07:40)
--- NOTE | 2019-06-21 04:25 | NUR ---
RN Rounds Patient is resting in bed with eyes closed at this time. Breathing is even and unlabored, no signs of distress noted. Telemetry box batteries changed at this time. Patient does not have any needs at this time. Bed is locked in the lowest position with call light within reach. Side rails up X 2.
--- NOTE | 2019-06-21 05:58 | NUR ---
RN Rounds Patient is resting in bed. Breathing is even and unlabored, no signs of distress noted. Patient does not have any needs at this time. Bed is locked in the lowest position with call light within reach. Side rails up X 2.
--- NOTE | 2019-06-21 06:35 | NUR ---
Closing Notes/ MD called Patient is resting in bed at this time. No signs of distress noted, breathing is even and unlabored. Left forearm 20G is patent and infusing. lunchroom monitor is in place. Vital signs were taken at this time. All needs met throughout shift. Bed is locked in the lowest position with call light within reach. Droplet and contact precautions met throughout shift. Will endorse care to dayshift Spoke to Dr. Price and updated him on negative results for covid test, new orders given to retest for Covid-19. RN to input orders.
[2019-06-21 08:00] VITALS: BP_SYST 119
--- NOTE | 2019-06-21 08:00 | NUR ---
Opening Notes Patient is awake, alert and oriented x4, laying in bed. Patient denies any pain at this time. No resp distress. IV noted on left FA, 20 gauge, flushing well. NS @ 150 cc/hr. Safety and fall measures in place. Call light within reach. Bed in lowest position, locked. Will continue to monitor.
[2019-06-21] MEDS: AZITHROMYCIN 500 MG in NS 250 ML IV SCH (10:16)
[2019-06-21] MEDS ORDERED: DOXY100T2 PO (10:55)
[2019-06-21 12:00] VITALS: BP_SYST 122
--- NOTE | 2019-06-21 12:30 | NUR ---
Notes Patient is awake, alert and oriented, eating lunch. No resp distress noted. Patient denies any pain at this time. Call light within reach. Safety and fall precautions in place. Will continue to monitor.
--- NOTE | 2019-06-21 16:20 | NUR ---
Notes Patient is laying in bed resting. No resp distress noted. Patient denies any pain at this time. Call light within reach. Bed in lowest position, locked. Will continue to monitor.
[2019-06-21 16:51] VITALS: BP_SYST 115
--- NOTE | 2019-06-21 17:00 | NUR ---
ID MD DR ROGER WAS CALLED, RE: TO CLARIFY DISCHARGE ORDER. SPOKE TO KIRBY.
== END 2019-06-21 18:00 | disposition home or self-care (01) | DRG 871 ==
LOC: SED 20:16 → STU 06-19 00:27 → EEVIPCON 06-19 00:27 → STU 06-19 01:05
PROVIDERS: ADMIT Internal Medicine Hospice and Palliative Medicine; ATTEND Internal Medicine Hospice and Palliative Medicine
DX: A41.9 Sepsis, unspecified organism (principal); E43 Unspecified severe protein-calorie malnutrition; J15.9 Unspecified bacterial pneumonia; E87.1 Hypo-osmolality and hyponatremia; N39.0 Urinary tract infection, site not specified; R65.20 Severe sepsis without septic shock; R19.7 Diarrhea, unspecified; Z20.828 Contact with and (suspected) exposure to other viral communicable diseases; E87.6 Hypokalemia; R73.9 Hyperglycemia, unspecified; Z68.30 Body mass index [BMI] 30.0-30.9, adult
CPT/HCPCS: 36415; 71045; 80053; 81000-TC; 83605; 83690-TC; 85025; 86710; 87040-TC; 87086; 87449; 87491; 87591; 96361; 96365; 96372; 99285; G0378; J0456; J0696; J2001; J2270; J2543; J7030; J7040; J7050; J7060; Q0144; U0002